=== PATIENT | male | born 2005 | race Caucasian/White ===

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

== ENCOUNTER → 2023-05-04 | Outpatient (REF) | payer OTHER, BC | LOC: M LAB REF 12:13 | PROVIDERS: ATTEND Physician Assistant | DX: J02.9 Acute pharyngitis, unspecified (principal) ==

== ENCOUNTER → 2023-06-08 | Outpatient (REF) | payer OTHER ==
[2023-06-09 13:42] LABS: GC DNA AMPLIFICATION NEGATIVE (NEGATIVE)
== END ==
LOC: M LAB REF 10:04
PROVIDERS: ATTEND Student in an Organized Health Care Education/Training Program
DX: N50.819 Testicular pain, unspecified (principal)

== ENCOUNTER → 2023-06-09 | Outpatient (CLI) | payer BC, OTHER | LOC: M WHC 13:00 | PROVIDERS: ATTEND Student in an Organized Health Care Education/Training Program | DX: N50.819 Testicular pain, unspecified (principal); N43.2 Other hydrocele; I86.1 Scrotal varices ==

== ENCOUNTER → 2023-12-13 | Outpatient (REF) | payer BC, OTHER ==
[2023-12-13 17:54] LABS: APPEARANCE, URINE CLEAR (CLEAR); BACTERIA, URINE AUTO NEGATIVE (NEGATIVE); BILIRUBIN, URINE AUTO NEGATIVE (NEGATIVE); BLOOD, URINE BLOOD NEGATIVE (NEGATIVE); COLOR, URINE YELLOW (YELLOW); GLUCOSE, URINE (UA) AUTO NEGATIVE (NEGATIVE); KETONE, URINE AUTO NEGATIVE (NEGATIVE); LEUKOCYTE ESTERASE, URINE AUTO NEGATIVE (NEGATIVE); NITRITE, URINE AUTO NEGATIVE (NEGATIVE); PROTEIN, URINE AUTO NEGATIVE (NEGATIVE); RBC, URINE AUTO 0 /HPF (0-3); SPECIFIC GRAVITY URINE AUTO 1.024 (1.002-1.035); SQUAMOUS EPITHELIAL CELL UR AU 0 /HPF (0-6); UROBILINOGEN, URINE AUTO 0.2 mg/dL (0.0-2.0); WBC, URINE AUTO 0 /HPF (0-3)
== END ==
LOC: M SMT 17:13
PROVIDERS: ATTEND Nurse Practitioner Family
DX: N50.819 Testicular pain, unspecified (principal)

== ENCOUNTER → 2024-10-02 | Outpatient (REF) | payer BC, OTHER | LOC: M LAB REF 14:32 | PROVIDERS: ATTEND Physician Assistant Medical | DX: J02.9 Acute pharyngitis, unspecified (principal) ==

== ENCOUNTER 2025-02-07 11:10 | Day surgery (SDC) | payer BC ==
[~2025-02-07] VITALS: Ht 177.8 cm; Wt 127.2 kg
[2025-02-07] MEDS ORDERED: LR 1,000 ML IV SCH (11:25)
[2025-02-07] MEDS ORDERED: LIDOCAINE 2% 100MG/5ML SDV (FOR ANES.) As Ordered ONE (12:23)
[2025-02-07] MEDS ORDERED: MIDAZOLAM INJ 2MG/2ML VIAL As Ordered ONE (12:23)
[2025-02-07] MEDS ORDERED: fentaNYL 100 MCG/2 ML INJECTION As Ordered ONE (12:23)
[2025-02-07] MEDS ORDERED: propofoL 200 MG/20 ML VIAL As Ordered ONE (12:23)
[2025-02-07] MEDS ORDERED: KETOROLAC 30 MG/ML 1ML VIAL As Ordered ONE (12:26)
[2025-02-07] MEDS ORDERED: ACETAMINOPHEN 1000MG/100ML IV BAG As Ordered ONE (12:26)
[2025-02-07] MEDS ORDERED: hydrALAZINE 20MG/ML 1ML VIAL As Ordered ONE (12:26)
[2025-02-07] MEDS ORDERED: CHLOROPROCAINE PRES. FREE 3% 20ML VIAL As Ordered ONE (12:27)
[2025-02-07] MEDS ORDERED: fentaNYL 100 MCG/2 ML INJECTION IV PRN (14:00)
[2025-02-07] MEDS ORDERED: MORPHINE 2 MG/ML 1ML VIAL IV PRN (14:00)
[2025-02-07] MEDS ORDERED: NORCO, ANEXSIA 5/325MG TABLET (HYDROcodone/ACETAMINOPHEN) PO PRN (14:35)
[2025-02-07] MEDS: ONDANSETRON 4MG 2ML VIAL IV PRN (14:36)
[2025-02-07] MEDS: oxyCODONE 5MG TAB PO PRN (14:36)
[2025-02-07 15:32] VITALS: BP 148/70; TEMP 97.7; O2SAT 98
== END 2025-02-07 15:37 | disposition home or self-care (01) ==
LOC: M SDC 11:10
PROVIDERS: ATTEND Surgery
DX: L05.91 Pilonidal cyst without abscess (principal); Z68.39 Body mass index [BMI] 39.0-39.9, adult; R06.83 Snoring
CPT/HCPCS: 11770; 88304; J0131; J1885; J2250; J2401; J2405; J3010